=== PATIENT | male | born 1975 | race Caucasian/White ===

== ENCOUNTER 2022-10-28 18:15 | Emergency (ER) | payer BC, SELFPAY ==
[2022-10-28] VITALS (12 sets, daily range): BP systolic 136–178; BP diastolic 101–120; PULSE 98–103; RESP 18–20; TEMP 36.4–37.2; O2SAT 98
--- NOTE | 2022-10-28 18:30 | CT_ITS ---
The [address] [address] Patient Name: VALERIA BENAVIDEZ MRN: [id number] date: 1975 Sex: M Assigned Patient Location: ER Current Patient Location: ED.MAIN Accession/Order Number: [id number] Exam Date: 10/28/2022 19:13 Report Date: 10/28/2022 20:09 At the request of: BILL SHEPPARD Procedure: CT lumbar spine wo con EXAM: CT lumbar spine wo con HISTORY: Chronic back and leg pain COMPARISON: None. TECHNIQUE: Axial CT imaging is performed through the lumbar spine. Sagittal coronal reformatted reconstructed sequences were performed FINDINGS: Maintenance of the normal lumbar lordosis. Vertebral body heights and alignments exhibit no fracture or listhesis. Intervertebral disc spaces, endplates and facet joints are unremarkable for patient's age. Chronic central canal narrowing at L3-L4 and L4-L5. No prevertebral soft tissue edema. The sacroiliac joints are normal. Atherosclerosis of the aorta and visualized iliac arteries. The superficial subcutaneous soft tissues are free of edema, hematoma, mass or cyst. No visualized muscle hematoma, atrophy or fatty infiltration. IMPRESSION: No visualized acute irregularity. Chronic central canal narrowing at L3-L4 and L4-L5. Electronically authenticated by: ABRAHAM ASH Date: 10/28/2022 20:09
--- NOTE | 2022-10-28 18:31 | ED.BACK1 ---
Documented by User: Andrew Washington MD 10/28/22 18:35 HPI - Back Pain/Injury General Chief Complaint: Back Pain/Injury Stated Complaint: BACK PAIN Time Seen by Provider: 10/28/22 18:22 Source: patient Mode of arrival: walk-in Limitations: no limitations History of Present Illness HPI Narrative: patient here is acute on chronic low back pain. He's never been referred to a back specialist, chiropractor or orthopedic doctor. He said he had some numbness in his great toes several months ago and did notify his primary care doctor but no referral was made. He admits this pain is a different character different intensity than it's ever been. 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 He says the difference is now the pain radiates from his left lumbar area intense pain in his left buttock and all the way down his leg. He has not had any weakness in his muscles that he can tell. He's not had bowel or bladder incontinence. He's not had fever. No new complaints. Related Data Home Medications Medication Instructions Recorded Confirmed atorvastatin 40 mg tablet 40 mg PO QDAY 10/28/22 10/28/22 levothyroxine 50 mcg tablet 50 mcg PO QDAY 10/28/22 10/28/22 lisinopril 10 mg tablet 10 mg PO QDAY 10/28/22 10/28/22 pravastatin 20 mg tablet 20 mg PO QDAY 10/28/22 10/28/22 Allergies Allergy/AdvReac Type Severity Reaction Status Date / Time No Known Drug Allergies Allergy Verified 10/28/22 18:22 PFSH PFS Social History Smoking status: Current every day smoker Exam Narrative Exam Narrative: moves about with some hesitation, he is sitting with his knees pulled up and has just comfort when he straightens his legs. Vital signs are noted to have some elevation in his blood pressure I believe is related to his discomfort. We will recheck with a manual cuff as he becomes more comfortable. He drove himself in the hospital and was told he would not be given narcotic analgesics unless there is another potential ride to take him home. Problem focused examination to the back shows no skin lesions O contusions or abrasions. There is no gross kyphoscoliosis. In the right lateral position his deep tendon reflexes at patella are three over four and symmetrical Achilles two over four and symmetrical extensor hallucis longus strength is good because his severe pain when wwe stretch his toes upward on the left side and it's radicular in nature. Lower extremities otherwise appear normal with no evidence of vascular ischemia or edema. Constitutional Vital Signs - 24 hr 10/28/22 18:23 10/28/22 18:42 10/28/22 20:29 Temperature 97.6 F 98.9 F Pulse Rate 103 H Pulse Rate [Monitor] 98 H Respiratory Rate 18 20 Blood Pressure 178/104 H 170/120 H Blood Pressure [Left Arm] 146/119 H Pulse Oximetry 98 98 Oxygen Delivery Method Room Air 10/28/22 21:10 10/28/22 21:11 10/28/22 21:43 Temperature Pulse Rate Pulse Rate [Monitor] Respiratory Rate Blood Pressure 175/107 H 175/107 H 172/116 H Blood Pressure [Left Arm] Pulse Oximetry Oxygen Delivery Method 10/28/22 21:39 10/28/22 21:45 10/28/22 22:00 Temperature Pulse Rate Pulse Rate [Monitor] Respiratory Rate Blood Pressure 163/119 H 163/115 H 155/111 H Blood Pressure [Left Arm] Pulse Oximetry Oxygen Delivery Method 10/28/22 22:15 10/28/22 22:15 10/28/22 22:30 Temperature Pulse Rate Pulse Rate [Monitor] Respiratory Rate Blood Pressure 162/112 H 162/112 H 136/101 H Blood Pressure [Left Arm] Pulse Oximetry Oxygen Delivery Method Course Vital Signs Vital signs: Vital Signs Temperature 97.6 F 10/28/22 18:23 Pulse Rate 98 H 10/28/22 18:23 Respiratory Rate 18 10/28/22 18:23 Blood Pressure 146/119 H 10/28/22 18:23 Pulse Oximetry 98 10/28/22 18:23 Oxygen Delivery Method Room Air 10/28/22 18:23 Temperature 98.9 F 10/28/22 18:42 Pulse Rate 103 H 10/28/22 18:42 Respiratory Rate 20 10/28/22 18:42 Blood Pressure 136/101 H 10/28/22 22:30 Pulse Oximetry 98 10/28/22 18:42 Oxygen Delivery Method Room Air 10/28/22 18:23 MDM - Back Pain/Injury MDM Narrative Medical decision making narrative: patient presents with acute worsening of low back pain that more radicular in nature. We'll order a CT scan and then start him on steroids and analgesics with follow-up as an outpatient pending CT evaluation that we'll be evaluated by the next Emergency Room physician Dr. Ladd. He does have a primary care doctor follow-up with. I will write prescriptions for him. Discharge Plan Discharge Chief Complaint: Back Pain/Injury Clinical Impression: Hypertensive urgency, Back pain Patient Disposition: Home, Self-Care Prescriptions / Home Meds: No Action atorvastatin 40 mg tablet 40 mg PO QDAY levothyroxine 50 mcg tablet 50 mcg PO QDAY lisinopril 10 mg tablet 10 mg PO QDAY pravastatin 20 mg tablet 20 mg PO QDAY Instructions: Hypertension (ED), Back Pain (ED) Stand Alone Forms: Portal Instructions Referrals: JUANITO FARMER [Primary Care Provider] - 1 week Follow Up Appointments: increase lisinopril 20mg qd. follow up with your doctor in 1-2 days to recheck BP Documented by User: Evangelist Ladd MD 10/28/22 22:39 HPI - Back Pain/Injury General Chief Complaint: Back Pain/Injury Stated Complaint: BACK PAIN Time Seen by Provider: 10/28/22 18:22 Related Data Home Medications Medication Instructions Recorded Confirmed atorvastatin 40 mg tablet 40 mg PO QDAY 10/28/22 10/28/22 levothyroxine 50 mcg tablet 50 mcg PO QDAY 10/28/22 10/28/22 lisinopril 10 mg tablet 10 mg PO QDAY 10/28/22 10/28/22 pravastatin 20 mg tablet 20 mg PO QDAY 10/28/22 10/28/22 Allergies Allergy/AdvReac Type Severity Reaction Status Date / Time No Known Drug Allergies Allergy Verified 10/28/22 18:22 PFSH PFS Social History Smoking status: Current every day smoker Exam Constitutional Vital Signs - 24 hr 10/28/22 18:23 10/28/22 18:42 10/28/22 20:29 Temperature 97.6 F 98.9 F Pulse Rate 103 H Pulse Rate [Monitor] 98 H Respiratory Rate 18 20 Blood Pressure 178/104 H 170/120 H Blood Pressure [Left Arm] 146/119 H Pulse Oximetry 98 98 Oxygen Delivery Method Room Air 10/28/22 21:10 10/28/22 21:11 10/28/22 21:43 Temperature Pulse Rate Pulse Rate [Monitor] Respiratory Rate Blood Pressure 175/107 H 175/107 H 172/116 H Blood Pressure [Left Arm] Pulse Oximetry Oxygen Delivery Method 10/28/22 21:39 10/28/22 21:45 10/28/22 22:00 Temperature Pulse Rate Pulse Rate [Monitor] Respiratory Rate Blood Pressure 163/119 H 163/115 H 155/111 H Blood Pressure [Left Arm] Pulse Oximetry Oxygen Delivery Method 10/28/22 22:15 10/28/22 22:15 10/28/22 22:30 Temperature Pulse Rate Pulse Rate [Monitor] Respiratory Rate Blood Pressure 162/112 H 162/112 H 136/101 H Blood Pressure [Left Arm] Pulse Oximetry Oxygen Delivery Method Course Vital Signs Vital signs: Vital Signs Temperature 97.6 F 10/28/22 18:23 Pulse Rate 98 H 10/28/22 18:23 Respiratory Rate 18 10/28/22 18:23 Blood Pressure 146/119 H 10/28/22 18:23 Pulse Oximetry 98 10/28/22 18:23 Oxygen Delivery Method Room Air 10/28/22 18:23 Temperature 98.9 F 10/28/22 18:42 Pulse Rate 103 H 10/28/22 18:42 Respiratory Rate 20 10/28/22 18:42 Blood Pressure 136/101 H 10/28/22 22:30 Pulse Oximetry 98 10/28/22 18:42 Oxygen Delivery Method Room Air 10/28/22 18:23 MDM - Back Pain/Injury MDM Narrative Medical decision making narrative: patient presents with acute worsening of low back pain that more radicular in nature. We'll order a CT scan and then start him on steroids and analgesics with follow-up as an outpatient pending CT evaluation that we'll be evaluated by the next Emergency Room physician Dr. Ladd. He does have a primary care doctor follow-up with. I will write prescriptions for him. care transferred at change of shift. Patient with chronic lower back pain. CT ordered and pending at change of shift. CT returned with chronic changes. Patient feeling better after he was medicated by Dr Washington. His BP however remained elevated. This was treated and improved prior to discharge. He takes lisinopril 10mg qd. Advised to increase to 20mg qd and to follow up with his PCP in 1-2 days for recheck Discharge Plan Discharge Chief Complaint: Back Pain/Injury Clinical Impression: Hypertensive urgency, Back pain Patient Disposition: Home, Self-Care Prescriptions / Home Meds: No Action atorvastatin 40 mg tablet 40 mg PO QDAY levothyroxine 50 mcg tablet 50 mcg PO QDAY lisinopril 10 mg tablet 10 mg PO QDAY pravastatin 20 mg tablet 20 mg PO QDAY Instructions: Hypertension (ED), Back Pain (ED) Stand Alone Forms: Portal Instructions Referrals: JUANITO FARMER [Primary Care Provider] - 1 week Follow Up Appointments: increase lisinopril 20mg qd. follow up with your doctor in 1-2 days to recheck BP
[2022-10-28] MEDS: HYDROMORPHONE HCL 1 MG/ML CARTRIDGE IM (19:11)
[2022-10-28] MEDS: PROMETHAZINE HCL 25 MG/ML VIAL IM (19:58)
[2022-10-28] MEDS: CLONIDINE HCL 0.2 MG TABLET PO (21:10)
== END 2022-10-28 22:55 | disposition home or self-care (01) ==
PROVIDERS: Emergency Provider Internal Medicine; PCP Nurse Practitioner Family
DX: I16.0 Hypertensive urgency (principal); M54.50 Low back pain, unspecified; G89.29 Other chronic pain; F17.210 Nicotine dependence, cigarettes, uncomplicated; Z79.899 Other long term (current) drug therapy; Z79.890 Hormone replacement therapy
CPT/HCPCS: 72131; 96372; 99285; J1170

== ENCOUNTER 2022-11-12 08:41 | Outpatient (OUT) | payer BC, SELFPAY ==
--- NOTE | 2022-11-12 09:36 | PM.CN ---
Consult Note: HPI Data of Consult Patient: new to practice Consult date: 11/12/22 Requesting Physician: Richelle Wells MD Primary Care Provider: JUANITO FARMER Consult Narrative Reason for consult: Low back, bilateral leg pain and weakness Narrative: this is a pleasant 46-year-old gentleman who presents for evaluation. He notes several years of low back pain with radiation into the bilateral lower extremities, but this has become worse in the past several months. He states that it is difficult to get through his day at work, which is physically demanding. He notes pain that radiates down into his calves bilaterally. He recently underwent lumbar imaging, which is significant for central canal stenosis at L3-L4 and L4-L5. He has been on tramadol for several years, and he also utilizes marijuana for anxiolysis. He denies adverse medication side effects or loss of bowel or bladder control. cc:: CC: Richelle Wells MD Review of Systems ROS Status of ROS 10 or more systems reviewed and unremarkable except as noted in history and below PFSH PFSH Social History Smoking status: Current every day smoker Meds Home Medications and Allergies Home Medications Medication Instructions Recorded Confirmed Type atorvastatin 40 mg tablet 40 mg PO QDAY 10/28/22 10/28/22 History levothyroxine 50 mcg tablet 50 mcg PO QDAY 10/28/22 10/28/22 History lisinopril 10 mg tablet 10 mg PO QDAY 10/28/22 10/28/22 History pravastatin 20 mg tablet 20 mg PO QDAY 10/28/22 10/28/22 History Allergies Allergy/AdvReac Type Severity Reaction Status Date / Time No Known Drug Allergies Allergy Verified 10/28/22 18:22 Exam Constitutional Common normals: no apparent distress, oriented x3 and healthy appearing Respiratory Common normals: normal respiratory effort Effort & inspection: able to speak in complete sentences Back & Pelvis Other: tenderness to palpation throughout the bilateral lumbar spine and paraspinal musculature. Pain is elicited with flexion, extension, and lateral rotation of the lumbar spine. Strength noted to be unremarkable throughout the bilateral lower extremities except for decreased strength rated at four out of five in the bilateral quadriceps femoris, anterior tibialis. Sensation noted to be unremarkable throughout the bilateral lower extremities except for dysesthesia in the bilateral L3, L4, L5 dermatomal distributions. Coordination remains intact. He remains nonantalgic. Extremity Common normals: normal to inspection Neuro Common normals: oriented x3, CN's II-XII intact bilaterally and no focal motor deficits Psych Common normals: mental status grossly normal and cooperative Assessment and Plan Assessment and Plan (1) Lumbar stenosis with neurogenic claudication: (2) Lumbar spondylosis: (3) Sacroiliac joint pain: Plan this is a pleasant 46-year-old gentleman who presents for evaluation. He has failed physical and medical modalities, as listed above. Imaging was reviewed, as noted above. We discussed that given his symptomatology and imaging findings, he may benefit from a course of physical therapy twice weekly for 4-6 weeks. He is in agreement with this plan. Medications were reviewed. I will have him try gabapentin 300 mg 3 times a day. Given his marijuana use, he will be deemed a non-opioid candidate. He expressed understanding. He will follow-up after the therapy is complete.
== END 2022-11-12 08:42 | disposition home or self-care (01) ==
LOC: PM 08:41
PROVIDERS: PCP Nurse Practitioner Family; Visit Provider Anesthesiology
DX: M48.062 Spinal stenosis, lumbar region with neurogenic claudication (principal); M47.816 Spondylosis without myelopathy or radiculopathy, lumbar region; M53.3 Sacrococcygeal disorders, not elsewhere classified
CPT/HCPCS: G0463

== ENCOUNTER 2022-11-26 16:25 | Outpatient (RCR) | payer BC, SELFPAY | END 2022-12-29 16:55 | disposition home or self-care (01) | LOC: PT 16:25 | PROVIDERS: PCP Nurse Practitioner Family; Visit Provider Anesthesiology Pain Medicine | DX: M48.062 Spinal stenosis, lumbar region with neurogenic claudication (principal) | CPT/HCPCS: 97113; 97161 ==